=== PATIENT | female | born 1980 | race Caucasian/White ===

== ENCOUNTER 2016-07-12 16:32 | Emergency (ER) | payer SELFPAY ==
[~2016-07-12] VITALS: Ht 170.2 cm; Wt 68.9 kg
[2016-07-12 21:11] LABS: BASOPHIL % 0.2 % (0-2); PLATELET COUNT 430 x10^3mcL (130-400); RED CELL DISTRIBUTION WIDTH 15.5 % (11.5-14.5)
[2016-07-12 21:18] LABS: CALCIUM 8.5 mg/dL (8.5-10.1); CARBON DIOXIDE 26.2 mmol/L (21-32); CHLORIDE SERUM 105 mmol/L (98-107); CREATININE SERUM 0.6 mg/dL (0.6-1.0); GFR1 > 60 mL/min; GLUCOSE SERUM 89 mg/dL (74-106); SODIUM SERUM 140 mmol/L (136-145)
[2016-07-12 21:22] LABS: ALKALINE PHOSPHATASE 354 U/L (46-116); ALT/SGPT 89 U/L (14-59); AMYLASE 41 U/L (25-115); AST/SGOT 106 U/L (15-37); BILIRUBIN TOTAL 0.34 mg/dL (0.20-1.00); LIPASE 173 IU/L (73-393)
[2016-07-12 21:23] LABS: ALBUMIN 2.8 g/dL (3.4-5.0)
[2016-07-12 21:52] VITALS: BP 134/60
== END 2016-07-12 21:52 | disposition home or self-care (01) ==
LOC: ED 16:32
PROVIDERS: Specialist
DX: K80.50 Calculus of bile duct without cholangitis or cholecystitis without obstruction (principal)
CPT/HCPCS: 83880; Q0092

== ENCOUNTER 2016-11-02 16:57 | Emergency (ER) | payer MEDICAID ==
[2016-11-02 18:08] LABS: BASOPHIL % 0.3 % (0-2); PLATELET COUNT 259 x10^3mcL (130-400)
[2016-11-02 18:10] LABS: RED CELL DISTRIBUTION WIDTH 16.8 % (11.5-14.5)
[2016-11-02 18:38] LABS: CALCIUM 8.6 mg/dL (8.5-10.1); CARBON DIOXIDE 26.4 mmol/L (21-32); CHLORIDE SERUM 103 mmol/L (98-107); CREATININE SERUM 0.8 mg/dL (0.6-1.0); GFR1 > 60 mL/min; GLUCOSE SERUM 108 mg/dL (74-106); POTASSIUM SERUM 4.3 mmol/L (3.5-5.1); SODIUM SERUM 141 mmol/L (136-145)
[2016-11-02 18:42] LABS: ALBUMIN 4.1 g/dL (3.4-5.0); ALKALINE PHOSPHATASE 194 U/L (46-116); ALT/SGPT 120 U/L (14-59); AMYLASE 59 U/L (25-115); AST/SGOT 236 U/L (15-37); BILIRUBIN TOTAL 0.5 mg/dL (0.20-1.00); LIPASE 400 IU/L (73-393); TOTAL PROTEIN, SERUM 7.4 g/dL (6.4-8.2)
[2016-11-02 20:15] VITALS: BP 114/78
== END 2016-11-02 20:15 | disposition left against medical advice (07) ==
LOC: ED 16:57
PROVIDERS: Emergency Medicine
DX: K85.90 Acute pancreatitis without necrosis or infection, unspecified (principal); K91.86 Retained cholelithiasis following cholecystectomy
CPT/HCPCS: 36415; 83880; J3490; Q0092; Q0162